=== PATIENT | female | born 1975 ===

== ENCOUNTER 2025-10-03 13:13 | Emergency (ER) | payer OTHER, SELFPAY ==
[2025-10-03 13:21] VITALS: BP 170/103
[2025-10-03 13:34] VITALS: BP 158/101
--- NOTE | 2025-10-03 13:57 | ED.GENMED ---
History of Present Illness
General
Chief Complaint: Blood Pressure Problem
Source: patient
Time Seen by Provider: 10/03/25 13:38
History of Present Illness
History of Present Illness:
50-year-old female with no documented past medical history presenting to the emergency department for evaluation of elevated blood pressure since she saw her primary care provider at a routine annual physical earlier this week. Plan was for the
patient to monitor her blood pressure at home and then follow-up again with the primary care provider however her blood pressures have remained elevated with patient stating last night while just resting at home her blood pressure was as high as
170/116. Patient does note she has been experiencing some perioral paresthesia, today it seemed to be a little bit more persistent and with the continued elevated blood pressures decided to come to the ER for further evaluation. Patient denies any
headaches, visual disturbances, focal weakness or numbness, chest pain or shortness of breath. Social history was noncontributory. She does not take any other medications.
Past History
Past History
ED Past Medical History: None
ED Past Surgical History:
Social History
Tobacco: Non-smoker
Alcohol: Occasional
Drug: None
Personal:
Living: with family
Review of Systems
Review of Systems
All Other Systems: ROS reviewed and negative except as documented in HPI and ROS
Phy Exam
Physical Exam
Physical Exam:
GENERAL: Alert , in no apparent distress
HEAD: Normocephalic atraumatic
EYE: conjunctiva clear
NECK: Supple
ENT: o/p clr, mmm.
CARDIAC: Regular rate and rhythm
LUNGS: Clear breath sounds bilaterally, no acute respiratory distress, no wheezes/rales/rhonchi
NEUROLOGICAL: Alert and oriented
SKIN: Warm and dry, skin intact.
MUSCULOSKELETAL: well perfused.
PSYCH: Normal and appropriate interaction.
Scores
Heart Failure Risk
Heart Failure Risk Score: Not Applicable
Heart Score for Chest Pain Patients
STEMI patient?: Not applicable
Withdrawal Assessment of Alcohol
Withdrawal Assessment Completed?: Not applicable
Course
Orders/Labs/Results
Orders:
Orders
10/03/25 13:54
Electrocardiogram (*1) Urgent
Reason for Study: Hypertension, Benign
CT Head W/o Iv Contrast Urgent
Comment:
Reason For Exam: HTN, paresthesia periorally
EKG- Treatment ONCE
Vital Signs
Initial and Last Documented VS:
Initial Vital Signs
Temp Pulse Resp BP Pulse Ox
97.8 F 73 16 170/103 100
10/03/25 13:21 10/03/25 13:21 10/03/25 13:21 10/03/25 13:21 10/03/25 13:21
Last Documented Vital Signs
Temp Pulse Resp BP Pulse Ox
97.8 F 83 17 136/95 98
10/03/25 13:21 10/03/25 15:45 10/03/25 15:45 10/03/25 15:28 10/03/25 14:10
MDM/Problems Addressed
Differential Diagnosis Includes:
Benign HTN
Malignant HTN
CVA/TIA
Renal dysfunction
Mass/Malignancy
MDM/Problems Addressed:
50-year-old female presenting to the ER for evaluation of elevated blood pressure since following up with her family doctor and annual physical earlier this week, multiple blood pressures at home also remain elevated with a diastolic of around 100.
Systolic will range anywhere from around 150-170. Patient does describe some perioral paresthesia with the symptoms being more present today. Hypertensive here. She did have lab work done at her primary care office which I did review through the
[place] [facility] link which did not reveal any significant abnormalities. Will obtain EKG and CT of the head here. Had long-term discussion with patient about initiating treatment with medication now versus when she follows up with primary care
provider in 1 to 2 weeks and patient ultimately would prefer to start medication, plan to initiate 5 mg of amlodipine once daily
*Radiology
Radiology exam reviewed: radiology read reviewed
*Pulse Oximetry
SaO2: 98
Oxygen Mode of Delivery: Room air
Patient hypoxic: no
*EKG
Interpreted by ED Provider?: Yes
Heart Rate: 66
Rate: normal
Rhythm: sinus
Ischemia: no ischemia
*Weight Yardage Checker Interpretation
Rate: normal
Heart Rate: 72
Rhythm: sinus
*Critical Care Note
Total Time (30-74mins, 75-104mins- exclusive of procedures): Not Applicable
Data Reviewed
Review of Other/Old Records Reveals: Labs
Patient Management
Escalation/DeEscalation of care consider admission/obs:
Patient stable for d/c home. BP much improved. Script for amlodipine sent to pharmacy. Patient aware of return precautions
ED Attending Note
-
Portions of this chart may have been created with voice recognition software.� Occasional wrong word or��sound alike� substitutions may have occurred due to the inherent limitations of voice recognition software.
Discharge Plan
Departure
Patient Disposition: Home (Routine Discharge)
Date of Disposition: 10/03/25
Time of Disposition: 15:43
Patient with high blood pressure during this ER visit?: Yes
Discharge Problem:
Hypertension
Instructions: High Blood Pressure (DC)
Prescriptions:
New
amlodipine 5 mg tablet
5 mg PO DAILY Qty: 30 0RF
Referrals:
Tashi Garcia, DO [Family Provider, Family Practice]
Interventions
Interventions:
*Risk Screen - Suicide Last Done: 10/03/25 14:10
*General Assessment Last Done: 10/03/25 14:09
*Neglect/Abuse Screening Last Done: 10/03/25 14:10
*ED- Fall Risk Assessment Last Done: 10/03/25 14:09
*ED COVID-19 Vaccine History Last Done: 10/03/25 14:09
*ED Influenza Vaccine History Last Done: 10/03/25 14:09
*Nursing Disposition Last Done: 10/03/25 15:56
ED- Cardiac Assessment Last Done: 10/03/25 14:10
ED- Neurological Assessment Last Done: 10/03/25 14:10
ED- Pulmonary Assessment Last Done: 10/03/25 14:10
Discharge Date and Time
Discharge Date/Time: 10/03/25 16:03
Print Language: SETSWANA
[2025-10-03 14:00] VITALS: BP 147/91
[2025-10-03 15:00] VITALS: BP 142/91
[2025-10-03 15:28] VITALS: BP 136/95
== END 2025-10-03 16:03 | disposition home or self-care (01) ==
LOC: EMR 13:13
PROVIDERS: EMERGENCY PHYSICIAN Student in an Organized Health Care Education/Training Program; FAMILY PHYSICIAN Family Medicine
DX: I10 Essential (primary) hypertension (principal)
CPT/HCPCS: 99284; 70450; 93005